=== PATIENT | female | born 1955 | race Native Hawaiian/Other Pacific Islander ===

== ENCOUNTER → 2016-11-05 23:50 | Outpatient (CLI) | payer OTHER ==
[~2016-11-05 23:50] MED LIST: AMBIEN5 MG PO; AMLO2.5T PO; ATEN50TA36 PO; AZELASTINE HCL0.1 %; CLON1TAB18 PO; FERROUS SULF325 MG PO; FEXOFENADINE H180 MG PO; GABA100C2 PO; HYDR25TA15 PO; LAMICTAL150 MG PO; LEXAPRO10 MG PO; LEXAPRO20 MG PO; MOME50SP; OMEPRAZOLE20 M1 PO; SIMV10TA PO; TRAM50TA PO; ZESTRIL40 MG PO; ZIPR80CA PO
== END | disposition home or self-care (01) ==
LOC: AMB 23:50